=== PATIENT | female | born 1945 | race Caucasian/White ===

== ENCOUNTER 2016-07-11 17:55 | Emergency (ER) | payer SELFPAY ==
[2016-07-12 05:11] LABS: Basophils % (Auto) 0.4 % (0.0-1.8); Eosinophils % (Auto) 0.1 % (0.0-4.3); Hematocrit 36.8 % (30.3-42.9); Hemoglobin 11.5 gm/dl (10.1-14.3); Mean Corpuscular HGB Conc 31 % (30-34); Mean Corpuscular Hemoglobin 31 pg (28-32); Mean Corpuscular Volume 99 fl (79-97); Platelet Count 204 K/mm3 (140-440); Red Blood Count 3.73 M/mm3 (3.65-5.03); White Blood Count 11.6 K/mm3 (4.5-11.0)
[2016-07-12 05:13] LABS: Albumin 3.8 g/dL (3.9-5); Albumin/Globulin Ratio 1.2 %; BUN/Creatinine Ratio 12.94; Bilirubin,Total 0.3 mg/dL (0.1-1.2); Calcium 8.9 mg/dL (8.4-10.2); Chloride 92.6 mmol/L (98-107); Potassium 4.1 mmol/L (3.6-5.0); Total Protein 6.9 g/dL (6.3-8.2)
[2016-07-12] MEDS ORDERED: NACL 0.9% 1000 ML 1,000 ML IV ONE (06:40)
--- NOTE | 2016-07-12 06:40 | Emergency Department Report ---
- General Chief Complaint: Upper Respiratory Infection Stated Complaint: FEELING SICK Time Seen by Provider: 07/11/16 19:58 Source: patient Mode of arrival: Wheelchair Limitations: Physical Limitation - History of Present Illness Initial Comments: 71-year-old female presents to the emergency department complaining of upper respiratory tract infection symptoms. Patient states for the past couple of days she has been having nasal congestion, sore throat, and cough. Patient states the cough has been nonproductive, but nursing notes show that the cough has been productive. She states she began having vomiting and diarrhea earlier today. Patient states that she has been having some fever, although she told the nursing staff she did not. She also reports some burning with urination and increased frequency. There are no other complaints. MD Complaint: cough, sore throat, nasal congestion -: Gradual, days(s) (2) Consistency: intermittent Improves With: nothing Worsens With: nothing Associated Symptoms: fever, nasal congestion, sore throat, cough, nausea, vomiting, diarrhea, dysuria Treatments Prior to Arrival: none - Related Data Previous Rx's Medication Instructions Recorded Last Taken Type Oseltamivir [Tamiflu] 75 mg PO BID #10 cap 07/12/16 Unknown Rx Allergies Allergy/AdvReac Type Severity Reaction Status Date / Time iodine Allergy Seizure Verified 07/11/16 18:17 codeine AdvReac Vomiting Verified 07/11/16 18:17 latex AdvReac Rash Verified 07/11/16 18:17 sulfamethoxazole AdvReac "GO CRAZY" Verified 07/11/16 18:17 [From Bactrim] trimethoprim [From Bactrim] AdvReac "GO CRAZY" Verified 07/11/16 18:17 ED Review of Systems ROS: Stated complaint: FEELING SICK Other details as noted in HPI Comment: All other systems reviewed and negative Constitutional: fever ENT: throat pain, congestion Respiratory: cough Gastrointestinal: vomiting, diarrhea Genitourinary: dysuria, frequency ED Past Medical Hx - Past Medical History Previous Medical History?: Yes Hx Hypertension: Yes Hx Diabetes: Yes Additional medical history: Hyperlipidemia - Family History Family history: no significant - Social History Smoking Status: Never Smoker Substance Use Type: None - Medications Home Medications: Home Medications Medication Instructions Recorded Confirmed Last Taken Type Oseltamivir [Tamiflu] 75 mg PO BID #10 cap 07/12/16 Unknown Rx ED Physical Exam - General Limitations: Physical Limitation General appearance: alert, in no apparent distress - Head Head exam: Present: atraumatic, normocephalic - Eye Eye exam: Present: normal appearance, PERRL, EOMI - ENT ENT exam: Present: normal exam, normal orophraynx, mucous membranes moist, TM's normal bilaterally - Neck Neck exam: Present: normal inspection, full ROM. Absent: tenderness - Respiratory Respiratory exam: Present: respiratory distress. Absent: normal lung sounds bilaterally - Cardiovascular Cardiovascular Exam: Present: normal rhythm, tachycardia, normal heart sounds - GI/Abdominal GI/Abdominal exam: Present: soft, normal bowel sounds. Absent: distended, tenderness - Extremities Exam Extremities exam: Present: normal inspection, full ROM. Absent: tenderness - Back Exam Back exam: Present: normal inspection, full ROM. Absent: tenderness - Neurological Exam Neurological exam: Present: alert, oriented X3. Absent: motor sensory deficit - Skin Skin exam: Present: warm, dry, intact ED Course Vital Signs 07/11/16 07/12/16 07/12/16 18:07 04:45 06:49 Temperature 99.2 F 99.3 F Pulse Rate 114 H 94 H Respiratory 22 16 16 Rate Blood Pressure 212/114 Blood Pressure 164/87 [Right] O2 Sat by Pulse 94 96 98 Oximetry 07/12/16 07:56 Temperature Pulse Rate 92 H Respiratory 18 Rate Blood Pressure Blood Pressure [Right] O2 Sat by Pulse 96 Oximetry ED Medical Decision Making - Lab Data Result diagrams: 07/12/16 04:25 07/12/16 04:25 - Radiology Data Radiology results: report reviewed, image reviewed Chest x-ray shows no acute cardiopulmonary abnormality. - Medical Decision Making Lab and imaging results reviewed and discussed with the patient. Patient goes to a day program with other individuals. Due to this, the patient will be started on Tamiflu and discharged from the emergency department. - Differential Diagnosis bronchitis, pneumonia, UTI Critical care attestation.: If time is entered above; I have spent that time in minutes in the direct care of this critically ill patient, excluding procedure time. ED Disposition Clinical Impression: Influenza A Disposition: DISCHARGED TO HOME OR SELFCARE Is pt being admited?: No Condition: Stable Instructions: Influenza (ED) Prescriptions: Oseltamivir [Tamiflu] 75 mg PO BID #10 cap Referrals: PRIMARY CARE, [Primary Care Provider] - 3-5 Days Time of Disposition: 08:06
[2016-07-12 06:44] LABS: Bacteria,Urine 1+ /HPF (Negative); Bilirubin,Urine NEG (Negative); Blood,Urine SM (Negative); Ketones,Urine 20 mg/dL (Negative); Leukocyte Esterase,Urine NEG (Negative); Mucus,Urine FEW /HPF; Nitrite,Urine POS (Negative); Urobilinogen,Urine < 2.0 mg/dL (<2.0)
[2016-07-12 06:45] LABS: Protein,Urine >500 mg/dL (Negative)
--- NOTE | 2016-07-12 07:49 | XRay Report ---
AP CHEST: HISTORY: Cough AP view of the chest demonstrates a normal mediastinal and cardiac contour with clear lungs and normal bony and soft tissue structures. A left [id number] terminates at the caval atrial junction. IMPRESSION: Unremarkable AP chest.
[2016-07-12 08:56] VITALS: BP 142/81
== END 2016-07-12 08:45 | disposition home or self-care (01) ==
LOC: ED 17:55
DX: J09.X2 Influenza due to identified novel influenza A virus with other respiratory manifestations (principal); I10 Essential (primary) hypertension; E11.9 Type 2 diabetes mellitus without complications; E78.5 Hyperlipidemia, unspecified; Z88.2 Allergy status to sulfonamides; Z91.040 Latex allergy status; Z91.02 Food additives allergy status; Z88.8 Allergy status to other drugs, medicaments and biological substances
CPT/HCPCS: 36415; 71010; 80053; 81001; 83690; 83880; 85025; 87400; 96360; 96361; 99284; J7030